=== PATIENT | male | born 1950 | race Caucasian/White ===

== ENCOUNTER 2021-03-25 08:17 | Inpatient (IN) ==
[2021-03-25 08:47] LABS: POC Blood Urea Nitrogen 19 mg/dL (6-20); POC CO2 26 mmol/L (22-30); POC Calcium, Ionized 1.21 mmEq/L (1.16-1.32); POC Chloride 100 mEq/L (96-108); POC Creatinine 0.8 mg/dL (0.6-1.2); POC Glucose, Random 108 mg/dL (70-105); POC Hematocrit 36 % (41-55); POC Potassium 3.6 mEql/L (3.3-5.1); POC Sodium 138 mEq/L (133-145)
--- NOTE | 2021-03-25 09:01 | Emergency Department Note ---
HPI General Chief complaint: Extremity Injury, Lower Stated complaint: right knee surgery Time Seen by Provider: 03/25/21 08:38 Source: patient Mode of arrival: wheelchair Limitations: no limitations History of Present Illness HPI Narrative: Narrative: 70 yo M w/ recent R knee replacement p/w drainage from his surgical site. He reports that he underwent R TKR in February, but since then has had the wound open and begin draining. He has seen Dr Rosado's SHOWROOM EXECUTIVE DIRECTOR/PA in the office who attempted packing but drainage has cont'd. Thus Dr Rosado has planned on operative intervention for this pt. Pt reports ongoing drainage but denies systemic symptoms and is overall feeling well. Related Data Home Medications Medication Instructions Recorded Confirmed atenolol 50 mg tablet 25 mg PO HS 01/04/20 02/19/21 benazepril 20 mg tablet 20 mg PO BID 01/04/20 02/19/21 bupropion HCl 150 mg 24 hr tablet, 450 mg PO QDAY tab 01/04/20 02/19/21 extended release cetirizine 10 mg tablet 10 mg PO BID tab 01/04/20 02/19/21 escitalopram oxalate 10 mg tablet 20 mg PO QDAY 01/04/20 02/19/21 pantoprazole 40 mg tablet,delayed 40 mg PO BID tab 01/04/20 02/19/21 release prazosin 2 mg capsule 2 mg PO QHS 01/04/20 02/19/21 sucralfate 1 gram tablet 1 g PO BID tab 01/04/20 02/19/21 albuterol sulfate 90 mcg/actuation 2 puff INHALATION Q4H PRN 08/24/20 02/19/21 aerosol inhaler cholecalciferol (vitamin D3) 50 150 mcg PO QDAY 08/24/20 02/19/21 mcg (2,000 unit) tablet (Vitamin D3) coenzyme Q10 200 mg capsule (Co 200 mg PO QDAY 08/24/20 02/19/21 Q-10) ibuprofen 800 mg tablet 800 mg PO Q8H PRN 08/24/20 02/19/21 multivitamin 1 tab PO QAM 08/24/20 02/19/21 plant stanol sonya 450 mg capsule 2 mg PO BID 08/24/20 02/19/21 (Cholest Off Plus) acetaminophen 325 mg tablet 325 mg PO ONCE PRN 10/26/20 02/19/21 (Tylenol) gabapentin 600 mg tablet 600 mg PO TID 12/29/20 02/19/21 ferrous sulfate 325 mg (65 mg 325 mg PO QDAY 02/19/21 02/19/21 iron) tablet Previous Rx's Medication Instructions Recorded aspirin 81 mg chewable tablet 81 mg PO BID #60 tab 02/28/21 docusate sodium 100 mg capsule 100 mg PO BID #60 cap 02/28/21 hydrocodone 10 mg-acetaminophen 1 - 2 tab PO Q4HP PRN #75 tab 02/28/21 325 mg tablet Allergies Allergy/AdvReac Type Severity Reaction Status Date / Time codeine Allergy Mild Rash Verified 03/25/21 08:19 red dye Allergy Mild Rash Verified 03/25/21 08:19 Review of Systems ROS ROS Narrative: Narrative: All systems ED: reviewed and negative except as stated. [facility] Narrative Patient History Narrative: Narrative: Medical/Surgical/Family History All Active Problems (Updated 03/25/21 @ 09:07 by Karlos Pack MD) Kidney stones (Chronic) Foreign body in ear (Chronic) Nausea (Chronic) Flank pain (Chronic) Chest pain (Chronic) History of cystoscopy (Chronic) History of surgery (Chronic) History of ankle surgery (Chronic) History of surgery (Chronic) History of tonsillectomy (Chronic) Atherosclerotic heart disease (Chronic) Emphysema, unspecified (Chronic) Essential hypertension (Chronic) Migraine, unspecified, not intractable, without status migrainosus (Chronic) History of lithotripsy (Chronic) Ureteral stone (Acute) Prostate cancer screening (Acute) Cholelithiasis and cholecystitis without obstruction (Acute) Abdominal pain of unknown etiology (Acute) Microhematuria (Acute) History of kidney stones (Acute) Bladder stone (Acute) Pyuria (Acute) UTI (urinary tract infection) (Acute) Hydronephrosis, left (Acute) Postoperative wound infection (Acute) Cellulitis of knee, right (Acute) Medical History (Updated 03/25/21 @ 09:07 by Karlos Pack MD) Atherosclerotic heart disease Chest pain Emphysema, unspecified Essential hypertension Flank pain Foreign body in ear Kidney stones Migraine, unspecified, not intractable, without status migrainosus Nausea Surgical History History of ankle surgery Leg/ankle procedure History of cystoscopy History of laparoscopic cholecystectomy 03/17/2020 History of lithotripsy History of surgery Dilatation of left ureter with intraluminal device History of surgery Revise neck spine History of tonsillectomy Family History Mother Alzheimer's dementia Family/Other Lung cancer Grandparent Grandmother Alzheimer's dementia Social History Smoking Status: Former smoker Alcohol Intake Frequency: former alcohol drinker Substance Use: does not use Exam Narrative Narrative: Narrative: General Limitations: no limitations General appearance: Present alert and in no apparent distress Head Head: Present atraumatic and normocephalic Neck Neck: Present normal inspection Chest Chest: Present normal inspection and symmetric chest wall rise Respiratory Respiratory: Present normal lung sounds bilaterally; Absent accessory muscle use or decreased breath sounds Cardiovascular Cardiovascular: Present regular rate, normal rhythm, +S1, +S2 and other (2+ B/L DP pulses); Absent systolic murmur or diastolic murmur Extremities Extremities: Present other (R knee w/ edema, erythema, warmth, TTP, 5mm open are a at center of midline incision w/ serous drainage. Intact distal sensation and strength) Neurological Neurological: Present alert and oriented X3 Psychiatric Psychiatric: Present normal affect Course Vital Signs Vital signs: Vital Signs Temperature 98.2 F 03/25/21 08:17 Pulse Rate 82 03/25/21 08:17 Respiratory Rate 16 03/25/21 08:17 Blood Pressure 141/83 03/25/21 08:17 Pulse Oximetry (%) 96 03/25/21 08:17 Temperature 98.2 F 03/25/21 08:17 Pulse Rate 82 03/25/21 08:17 Respiratory Rate 16 03/25/21 08:17 Blood Pressure 141/83 03/25/21 08:17 Pulse Oximetry (%) 96 03/25/21 08:17 MDM MDM Narrative Medical decision making narrative: Narrative: Narrative: 70 yo M w/ recent R knee replacement p/w drainage from his surgical site. DDx - sepsis, necrotizing fasciitis, postop wound infection Pt presents stable, in NAD. He is nontoxic, has stable vitals and serious conditions such as sepsis/necrotizing fasciitis are unlikely. He appears to have an uncomplicated wound infection which Dr Rosado will be addressing operatively. No need for interventions in the ED. Lab Data Result diagrams: 03/25/21 08:35 Labs: Lab Results 03/25/21 03/25/21 Range/Units 08:35 08:35 WBC 10.5 (4.5-11.0) K/mcL RBC 3.75 L (4.63-6.08) M/mcL Hgb 12.2 L (13.7-17.5) g/dL Hct 36.2 L (40.1-51.0) % POC Hct 36 L (41-55) % MCV 96.5 (80.0-100.0) fL MCH 32.5 (26.0-34.0) pg MCHC 33.7 (31.0-36.0) g/dL RDW 13.2 (11.5-14.5) % Plt Count 192 (140-440) K/mcL MPV 10.7 H (7.4-10.4) fL Neut % (Auto) 72.7 (38.0-78.0) % Lymph % (Auto) 13.0 L (15.5-49.0) % [place] % (Auto) 9.3 (1.0-12.0) % Eos % (Auto) 4.4 (0.0-7.0) % Baso % (Auto) 0.6 (0.0-2.0) % Lymph # (Auto) 1.37 L (1.50-4.80) K/mcL [place] # (Auto) 0.98 H (0.10-0.90) K/mcL Eos # (Auto) 0.46 (0.00-0.70) K/mcL Baso # (Auto) 0.06 (0.00-0.30) K/mcL Absolute Neutrophils 7.64 (1.80-8.00) K/mcL POC Sodium 138 (133-145) mEq/L POC Potassium 3.6 (3.3-5.1) mEql/L POC Chloride 100 (96-108) mEq/L POC Total CO2 26 (22-30) mmol/L POC BUN 19 (6-20) mg/dL POC Creatinine 0.8 (0.6-1.2) mg/dL POC Glucose 108 H (70-105) mg/dL POC WB Ioniz Calcium 1.21 (1.16-1.32) mmEq/L ED POC Tests ED POC Tests: ELVI - SARS Antigen Negative Discharge Plan Patient/Caregiver Discharge Instructions Pt seen by SHOWROOM EXECUTIVE DIRECTOR/PA only: No Clinical Impression: Postoperative wound infection, Cellulitis of knee, right Patient Disposition: Xfer As Inpt ([facility]) Condition: Fair Discharge Date/Time: 03/25/21 09:23
[2021-03-25 09:10] LABS: Basophils # (Auto) 0.06 K/mcL (0.00-0.30); Basophils % (Auto) 0.6 % (0.0-2.0); Eosinophils # (Auto) 0.46 K/mcL (0.00-0.70); Eosinophils % (Auto) 4.4 % (0.0-7.0); Hematocrit 36.2 % (40.1-51.0); Hemoglobin 12.2 g/dL (13.7-17.5); Lymphocytes # (Auto) 1.37 K/mcL (1.50-4.80); Mean Cell Volume 96.5 fL (80.0-100.0); Mean Corpuscular HGB Conc 33.7 g/dL (31.0-36.0); Mean Platelet Volume 10.7 fL (7.4-10.4); Monocytes # (Auto) 0.98 K/mcL (0.10-0.90); Monocytes % (Auto) 9.3 % (1.0-12.0); Neutrophils % (Auto) 72.7 % (38.0-78.0); Platelet Count 192 K/mcL (140-440); RBC 3.75 M/mcL (4.63-6.08); Red Cell Distribution Width 13.2 % (11.5-14.5); WBC 10.5 K/mcL (4.5-11.0)
[2021-03-25] MEDS ORDERED: ceFAZolin 2 GM in DEXTROSE 5% IN WATER 50 ML IV SCH (09:15)
[2021-03-25] MEDS ORDERED: MAGNESIUM SULFATE 2 GM/50 ML BAG IV ONE (09:40)
[2021-03-25] MEDS ORDERED: LIDOCAINE HCL/PF 100 MG/5 ML SYRINGE IV ONE (09:40)
[2021-03-25] MEDS ORDERED: PROPOFOL 200 MG/20 ML VIAL IV ONE (09:40)
[2021-03-25] MEDS ORDERED: fentaNYL 250 MCG/5 ML VIAL IV ONE (09:40)
[2021-03-25] MEDS ORDERED: DEXAMETHASONE 10 MG/ML VIAL ONE (09:40)
[2021-03-25] MEDS ORDERED: ONDANSETRON 4 MG/2 ML VIAL ONE (09:40)
[2021-03-25] MEDS ORDERED: KETAMINE 50 MG/ML Syringe (ANEST) IV ONE (09:40)
[2021-03-25] MEDS ORDERED: VANCOMYCIN 500 MG VIAL IP SCH (10:15)
[2021-03-25] MEDS ORDERED: TOBRAMYCIN SULFATE 1.2 GM VIAL TOPICAL ONE (10:19)
[2021-03-25] MEDS ORDERED: MEPERIDINE 25 MG/ML VIAL IV PRN (10:23)
[2021-03-25] MEDS ORDERED: PROMETHAZINE 25 MG/ML VIAL IV PRN (10:23)
[2021-03-25] MEDS ORDERED: METHOCARBAMOL 1,000 MG/10 ML VIAL IV PRN (10:23)
[2021-03-25] MEDS ORDERED: IPRATROPIUM/ALBUTEROL 3 ML AMPUL.NEB NEB PRN (10:23)
[2021-03-25] MEDS ORDERED: LACTATED RINGERS 250 ML IV PRN (10:23)
[2021-03-25] MEDS ORDERED: diphenhydrAMINE 50 MG/ML VIAL IV PRN (10:23)
[2021-03-25] MEDS ORDERED: ACETAMINOPHEN 1,000 MG/100 ML BAG IV ONE (10:23)
[2021-03-25] MEDS ORDERED: NALOXONE HCL 0.4 MG/ML VIAL IV PRN (10:23)
[2021-03-25] MEDS ORDERED: ONDANSETRON 4 MG/2 ML VIAL IV PRN (10:23)
[2021-03-25] MEDS ORDERED: LACTATED RINGERS 1,000 ML IV SCH (10:30)
[2021-03-25] MEDS ORDERED: VANCOMYCIN 1 GM VIAL TOPICAL ONE (10:30)
[2021-03-25] MEDS ORDERED: BISACODYL 10 MG SUPP.RECT PR PRN (11:08)
[2021-03-25] MEDS ORDERED: BENZOCAINE/MENTHOL 1 LOZENGE PO PRN (11:08)
[2021-03-25] MEDS ORDERED: POLYETHYLENE GLYCOL 3350 17 GM PACKET PO PRN (11:08)
[2021-03-25] MEDS ORDERED: MAGNESIUM HYDROXIDE 30 ML ORAL.SUSP PO PRN (11:08)
[2021-03-25] MEDS ORDERED: FLEETS ADULT ENEMA PR PRN (11:08)
[2021-03-25] MEDS ORDERED: TRANEXAMIC ACID 1,000 MG/10 ML VIAL IV SCH (11:08)
--- NOTE | 2021-03-25 11:08 | Brief Operative Note ---
Brief Operative Note Date of procedure: 03/25/21 Pre-op diagnosis: Draining wound s/p total knee arthroplasty, possible infected total knee Post-op diagnosis: other (Infected right total knee arthroplasty) Procedure: Irrigation and debridement of infected total knee arthroplasty with polyethylene liner exchange Grafts/Implants: Yes (Size 6 12mm poly insert) Anesthesia: GLMA Findings: infection down to joint Complications: none Surgeon: Emmett Rosado Sexual Assault Nurse: Thierry Musa Estimated blood loss (cc): 50 Specimens Removed/Pathology: other (C&S x 2) Condition: stable Disposition: PACU
[2021-03-25] MEDS ORDERED: VANCOMYCIN PER PHARMACY IV SCH (11:16)
[2021-03-25] MEDS: fentaNYL 100 MCG/2 ML VIAL IV PRN ×3 (12:01→12:10)
--- NOTE | 2021-03-25 12:07 | Internal Medicine Consult Note ---
HPI Data of Consult Consult date: 03/25/21 Primary Care Provider: Magy Segundo Consult Narrative Patient Information: Note initiated : 03/25/21 at 11:52 am Service Date, if different from initiated Date: [] Patient: Jb Hanson 70 y/o M admitted on for right knee surgery. Chief Complaint: [] cc:: CC: Emmett Rosado Patient underwent total knee arthroplasty about 3 weeks ago on the right knee. He has since developed prosthetic joint infection. He underwent I&D with polyethylene liner exchange, for stage. Patient denies fever chills. Has a history of hypertension COPD not on home oxygen rarely uses rescue inhalers and history of depression anxiety GERD. Review of Systems: Pertinent positives above. Denies headache/fever/chills/nausea/vomiting/chest or abdominal pain/cough/dyspnea/diarrhea. Main 10 point review of system reviewed and negative PFSH PFSH All Active Problems (Updated 03/25/21 @ 09:07 by Karlos Pack MD) Kidney stones (Chronic) Foreign body in ear (Chronic) Nausea (Chronic) Flank pain (Chronic) Chest pain (Chronic) History of cystoscopy (Chronic) History of surgery (Chronic) History of ankle surgery (Chronic) History of surgery (Chronic) History of tonsillectomy (Chronic) Atherosclerotic heart disease (Chronic) Emphysema, unspecified (Chronic) Essential hypertension (Chronic) Migraine, unspecified, not intractable, without status migrainosus (Chronic) History of lithotripsy (Chronic) Ureteral stone (Acute) Prostate cancer screening (Acute) Cholelithiasis and cholecystitis without obstruction (Acute) Abdominal pain of unknown etiology (Acute) Microhematuria (Acute) History of kidney stones (Acute) Bladder stone (Acute) Pyuria (Acute) UTI (urinary tract infection) (Acute) Hydronephrosis, left (Acute) Postoperative wound infection (Acute) Cellulitis of knee, right (Acute) Medical History (Updated 03/25/21 @ 09:07 by Karlos Pack MD) Atherosclerotic heart disease Chest pain Emphysema, unspecified Essential hypertension Flank pain Foreign body in ear Kidney stones Migraine, unspecified, not intractable, without status migrainosus Nausea Surgical History History of ankle surgery Leg/ankle procedure History of cystoscopy History of laparoscopic cholecystectomy 03/17/2020 History of lithotripsy History of surgery Dilatation of left ureter with intraluminal device History of surgery Revise neck spine History of tonsillectomy Family History Mother Alzheimer's dementia Family/Other Lung cancer Grandparent Grandmother Alzheimer's dementia Social History household members: spouse marital status: occupational status: retired alcohol intake frequency: former alcohol drinker substance use type: does not use MEDS/ALLERGIES Home Medications and Allergies Home Medications Medication Instructions Recorded Confirmed Type atenolol 50 mg tablet 25 mg PO HS 01/04/20 02/19/21 History benazepril 20 mg tablet 20 mg PO BID 01/04/20 02/19/21 History bupropion HCl 150 mg 24 hr tablet, 450 mg PO QDAY tab 01/04/20 02/19/21 History extended release cetirizine 10 mg tablet 10 mg PO BID tab 01/04/20 02/19/21 History escitalopram oxalate 10 mg tablet 20 mg PO QDAY 01/04/20 02/19/21 History pantoprazole 40 mg tablet,delayed 40 mg PO BID tab 01/04/20 02/19/21 History release prazosin 2 mg capsule 2 mg PO QHS 01/04/20 02/19/21 History sucralfate 1 gram tablet 1 g PO BID tab 01/04/20 02/19/21 History albuterol sulfate 90 mcg/actuation 2 puff INHALATION Q4H PRN 08/24/20 02/19/21 History aerosol inhaler cholecalciferol (vitamin D3) 50 150 mcg PO QDAY 08/24/20 02/19/21 History mcg (2,000 unit) tablet (Vitamin D3) coenzyme Q10 200 mg capsule (Co 200 mg PO QDAY 08/24/20 02/19/21 History Q-10) ibuprofen 800 mg tablet 800 mg PO Q8H PRN 08/24/20 02/19/21 History multivitamin 1 tab PO QAM 08/24/20 02/19/21 History plant stanol sonya 450 mg capsule 2 mg PO BID 08/24/20 02/19/21 History (Cholest Off Plus) acetaminophen 325 mg tablet 325 mg PO ONCE PRN 10/26/20 02/19/21 History (Tylenol) gabapentin 600 mg tablet 600 mg PO TID 12/29/20 02/19/21 History ferrous sulfate 325 mg (65 mg 325 mg PO QDAY 02/19/21 02/19/21 History iron) tablet aspirin 81 mg chewable tablet 81 mg PO BID #60 tab 02/28/21 Rx docusate sodium 100 mg capsule 100 mg PO BID #60 cap 02/28/21 Rx hydrocodone 10 mg-acetaminophen 1 - 2 tab PO Q4HP PRN #75 tab 02/28/21 Rx 325 mg tablet Allergies Allergy/AdvReac Type Severity Reaction Status Date / Time codeine Allergy Mild Rash Verified 03/25/21 08:19 red dye Allergy Mild Rash Verified 03/25/21 08:19 EXAM Constitutional Vitals: Temp Pulse Resp BP Pulse Ox 100.4 F H 82 16 141/83 96 03/25/21 11:31 03/25/21 08:17 03/25/21 08:17 03/25/21 08:17 03/25/21 08:17 Exam: General: Alert, Awake, No acute Distress, obese Eyes/N/T: EOMI, PERRL, Head/Neck: neck supple, normocephalic atraumatic CV: RRR, No murmurs, normal s1/s2 Pulm: Clear b/l, no wheezing/rhonchi/rales Abd: soft, nontender, +BS x4 Ext: no clubbing/cyanosis/edema. Right knee and dressings Neuro: Alert, no focal deficits, moves all extremities, CN 2-12 grossly intact, symmetrical strength b/l upper/lower, sensations intact b/l upper/lower Skin: warm/dry DATA Data Completed and Pending Labs: Labs from last 24 hours 03/25/21 03/25/21 03/25/21 11:39 11:39 08:35 WBC Pending 10.5 RBC Pending 3.75 L Hgb Pending 12.2 L Hct Pending 36.2 L POC Hct MCV Pending 96.5 MCH Pending 32.5 MCHC Pending 33.7 RDW Pending 13.2 Plt Count Pending 192 MPV Pending 10.7 H Neut % (Auto) Pending 72.7 Lymph % (Auto) 13.0 L [place] % (Auto) 9.3 Eos % (Auto) 4.4 Baso % (Auto) 0.6 Lymph # (Auto) 1.37 L [place] # (Auto) 0.98 H Eos # (Auto) 0.46 Baso # (Auto) 0.06 Absolute Neutrophils 7.64 ESR Pending POC Sodium POC Potassium POC Chloride POC Total CO2 POC BUN POC Creatinine POC Glucose POC WB Ioniz Calcium C-Reactive Protein Pending 03/25/21 08:35 WBC RBC Hgb Hct POC Hct 36 L MCV MCH MCHC RDW Plt Count MPV Neut % (Auto) Lymph % (Auto) [place] % (Auto) Eos % (Auto) Baso % (Auto) Lymph # (Auto) [place] # (Auto) Eos # (Auto) Baso # (Auto) Absolute Neutrophils ESR POC Sodium 138 POC Potassium 3.6 POC Chloride 100 POC Total CO2 26 POC BUN 19 POC Creatinine 0.8 POC Glucose 108 H POC WB Ioniz Calcium 1.21 C-Reactive Protein A/P Narrative A/P Narrative: A: *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 IV abx course 4-6wks. weekly labs while on IV abx outpt -start rifampin if cx grows staph and if has residual hardware -pt/ot -IS -Continue home BB/ACEI, cont psych meds, ppi -ppx: per ortho ASA bid Time Spent With Patient Time: Total time spent is greater than 50% in coordination of care (as documented) at patient's floor/unit and/or counseling patient:
[2021-03-25 12:18] LABS: Basophils # (Auto) 0.03 K/mcL (0.00-0.30); Basophils % (Auto) 0.3 % (0.0-2.0); Eosinophils # (Auto) 0.29 K/mcL (0.00-0.70); Eosinophils % (Auto) 3.3 % (0.0-7.0); Hemoglobin 10.3 g/dL (13.7-17.5); Lymphocytes # (Auto) 1.25 K/mcL (1.50-4.80); Lymphocytes % (Auto) 14.3 % (15.5-49.0); Mean Cell Volume 98.7 fL (80.0-100.0); Mean Corpuscular HGB Conc 34.3 g/dL (31.0-36.0); Mean Platelet Volume 10.6 fL (7.4-10.4); Monocytes # (Auto) 0.39 K/mcL (0.10-0.90); Monocytes % (Auto) 4.5 % (1.0-12.0); Neutrophils % (Auto) 77.6 % (38.0-78.0); Platelet Count 167 K/mcL (140-440); RBC 3.04 M/mcL (4.63-6.08); Red Cell Distribution Width 13.5 % (11.5-14.5); WBC 8.8 K/mcL (4.5-11.0)
[2021-03-25] MEDS: 0.9 % SODIUM CHLORIDE 1,000 ML IV SCH ×2 (12:50→22:24)
[2021-03-25] MEDS: VANCOMYCIN 1,500 MG in 0.9 % SODIUM CHLORIDE 500 ML IV SCH ×2 (13:17→21:01)
[2021-03-25 13:59] LABS: Erythrocyte Sedimentation Rate 36 mm/hr (0-15)
[2021-03-25] MEDS: cefTRIAXone 2 GM in DEXTROSE 5% IN WATER 50 ML IV SCH (15:58)
[2021-03-25] MEDS: HYDROmorphone 1 MG/ML SYRINGE IV PRN (16:01)
[2021-03-25] MEDS: 0.9 % SODIUM CHLORIDE 10 ML SYRINGE IV SCH ×2 (16:07→22:25)
[2021-03-25] MEDS: DOCUSATE SODIUM 100 MG CAPSULE PO SCH (21:02)
[2021-03-25] MEDS: ASPIRIN 81 MG TAB.CHEW PO SCH (21:02)
[2021-03-25] MEDS: SENNOSIDES 1 TABLET PO SCH (21:02)
[2021-03-25] MEDS: HYDROcodone/APAP 10/325MG TABLET PO PRN (21:02)
[2021-03-25] MEDS: RIFAMPIN 300 MG CAPSULE PO SCH (21:03)
[2021-03-25] MEDS: diphenhydrAMINE 25 MG CAPSULE PO PRN (22:24)
[2021-03-25] MEDS: MELATONIN 3 MG TABLET PO PRN (22:25)
[2021-03-26] MEDS: 0.9 % SODIUM CHLORIDE 10 ML SYRINGE IV SCH ×3 (04:51→20:49)
--- NOTE | 2021-03-26 07:25 | Internal Med Progress Note ---
SUBJECTIVE Subjective Patient information: Note initiated : 03/26/21 at 7:23 am Service Date, if different from initiated Date: [] Patient: Jb Hanson 70 y/o M admitted on 03/25/21 for right knee surgery. Chief Complaint: [] Interval history: Patient underwent total knee arthroplasty about 3 weeks ago on the right knee. He has since developed prosthetic joint infection. He underwent I&D with polyethylene liner exchange, for stage. Patient denies fever chills. Has a history of hypertension COPD not on home oxygen rarely uses rescue i nhalers and history of depression anxiety GERD. 03/26 Patient states poor sleep but that is normal for him. States he tried every sleep aid but nothing really helps. No other overnight event or new complaints. Review of Systems: denies headache/fever/chills/nausea/vomiting/chest or abdominal pain /cough/dyspnea/diarrhea. Otherwise see above. Constitutional Vitals: Vital Signs Temp Pulse Resp BP Pulse Ox 98.4 F 72 20 157/85 94 03/26/21 07:04 03/26/21 07:04 03/26/21 07:04 03/26/21 07:04 03/26/21 07:04 Period Temp Pulse Resp BP Sys/Rankin Pulse Ox Last 24 Hr 97.7 F-100.4 F 72-82 16-20 113-157/69-85 88-96 Intake and Output 03/25/21 03/26/21 03/26/21 21:59 05:59 13:59 Intake Total 900 2257 Output Total 100 800 Balance 800 1457 Weight 121.223 kg Intake & Output: Intake & Output 03/25/21 03/26/21 03/26/21 21:59 05:59 13:59 Intake Total 900 2257 Output Total 100 800 Balance 800 1457 Weight 121.223 kg Intake: IV 550 1457 Sodium Chloride 0.9% 1,000 ml @ 957 100 mls/hr IV .Q10H [facility] Rx#: [id number] Vancomycin 1,500 mg In Sodium 500 500 Chloride 0.9% 500 ml @ 333.3 mls/hr IV Q12H [facility] Rx#: [id number] Rocephin 2 gm In Dextrose 5% in 50 Water 50 ml @ 100 mls/hr IV DAILY [facility] Rx#:[id number] Oral 350 800 Output: Drainage 50 Right Knee Woundvac 50 Void Amount 50 800 Other: Meal Dinner Percent of Meal Consumed 100% Feeding Ability Independent Independent Urine Appearance Clear Clear Urine Color Light Magalie Dark Yellow Urine Odor Normal # Voids 1 2 Exam: General: Alert, Awake, No acute Distress, obese Eyes/N/T: EOMI, Head/Neck: neck supple, CV: RRR, No murmurs, Pulm: Clear b/l, no wheezing/rhonchi/rales Abd: soft, nontender, +BS x4 Ext: no clubbing/cyanosis/edema. Right knee and dressings Neuro: Alert, no focal deficits, moves all extremities,CN 2-12 grossly intact, symmetrical strength b/l upper/lower, sensations intact b/l upper/lower Skin: warm/dry OBJ DATA Labs CBC & Chem 7: 03/25/21 11:39 Labs: Abnormal Lab Results 03/25/21 03/25/21 03/25/21 11:39 11:39 08:35 RBC 3.04 L 3.75 L Hgb 10.3 L 12.2 L Hct 30.0 L 36.2 L POC Hct MPV 10.6 H 10.7 H Lymph % (Auto) 14.3 L 13.0 L Lymph # (Auto) 1.25 L 1.37 L [place] # (Auto) 0.98 H ESR 36 H POC Glucose C-Reactive Protein 24.10 H 03/25/21 08:35 RBC Hgb Hct POC Hct 36 L MPV Lymph % (Auto) Lymph # (Auto) [place] # (Auto) ESR POC Glucose 108 H C-Reactive Protein Meds: Medications Hydrocodone Bitart/Acetaminophen (Hydrocodone/Apap 10/325mg Tablet) 1 - 2 tab PO Q4HP PRN; Protocol PRN Reason: Per Pain Protocol Last Admin: 03/25/21 21:02 Dose: 1 tab Documented by: Aspirin (Aspirin 81 Mg Tab.Chew) 81 mg PO BID [facility] Last Admin: 03/25/21 21:02 Dose: 81 mg Documented by: Bisacodyl (Bisacodyl 10 Mg Supp.Rect) 10 mg [place] Q2-3DAYS PRN PRN Reason: Constipation Diphenhydramine HCl (Diphenhydramine 25 Mg Capsule) 25 mg PO HSP PRN PRN Reason: Insomnia Last Admin: 03/25/21 22:24 Dose: 25 mg Documented by: Docusate Sodium (Docusate Sodium 100 Mg Capsule) 100 mg PO BID [facility] Last Admin: 03/25/21 21:02 Dose: 100 mg Documented by: Hydromorphone HCl (Hydromorphone 1 Mg/Ml Syringe) 0.5 - 2 mg IV Q2HP PRN; Protocol PRN Reason: Per Pain Protocol Last Admin: 03/25/21 16:01 Dose: 1 mg Documented by: Sodium Chloride (Sodium Chloride 0.9%) 1,000 mls @ 100 mls/hr IV .Q10H [facility] Last Admin: 03/25/21 22:24 Dose: 100 mls/hr Documented by: Vancomycin HCl 1,500 mg/ (Sodium Chloride) 500 mls @ 333.3 mls/hr IV Q12H [facility] Last Infusion: 03/25/21 23:00 Dose: Infused Documented by: Ceftriaxone Sodium 2 gm/ (Dextrose) 50 mls @ 100 mls/hr IV DAILY [facility]; Protocol Last Infusion: 03/25/21 16:30 Dose: Infused Documented by: Magnesium Hydroxide (Magnesium Hydroxide 30 Ml Oral.Susp) 30 ml PO BIDP PRN PRN Reason: Constipation Melatonin (Melatonin 3 Mg Tablet) 3 mg PO HSP PRN PRN Reason: Sleep Last Admin: 03/25/21 22:25 Dose: 3 mg Documented by: Ondansetron HCl (Ondansetron 4 Mg/2 Ml Vial) 4 mg IV Q4HP PRN; Protocol PRN Reason: Nausea And Vomiting Polyethylene Glycol (Polyethylene Glycol 3350 17 Gm Packet) 17 gm PO DAILYP PRN PRN Reason: Constipation Rifampin (Rifampin 300 Mg Capsule) 300 mg PO BID@0700,2000 [facility]; Protocol Last Admin: 03/25/21 21:03 Dose: 300 mg Documented by: Senna (Sennosides 1 Tablet) 2 tab PO HS [facility] Last Admin: 03/25/21 21:02 Dose: 2 tab Documented by: Sodium Biphosphate/Sodium Phosphate (Fleets Adult Enema) 1 dose [place] Q3-4DAYS PRN PRN Reason: Constipation Sodium Chloride (0.9 % Sodium Chloride 10 Ml Syringe) 10 ml IV Q8 [facility] Last Admin: 03/26/21 04:51 Dose: Not Given Documented by: Throat Lozenges (Benzocaine/Menthol 1 Lozenge) 1 lozenge PO PRN PRN PRN Reason: Sore Throat Vancomycin HCl (Vancomycin Per Pharmacy) 1 order IV UD [facility]; Protocol A/P Narrative A/P Narrative: A: *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 IV abx course 4-6wks. weekly labs while on IV abx outpt -start rifampin if cx grows staph and if has residual hardware -pt/ot -IS -Continue home BB/ACEI, cont psych meds, ppi -ppx: per ortho ASA bid Time Spent With Patient Time: Total time spent is greater than 50% in coordination of care (as documented) at patient's floor/unit and/or counseling patient:
--- NOTE | 2021-03-26 07:39 | Orthopedic Progress Note ---
SUBJECTIVE Subjective Patient information: Note initiated : 03/26/21 at 7:35 am Service Date, if different from initiated Date: [] Patient: Jb Hanson 70 y/o M admitted on 03/25/21 for right knee surgery. Chief Complaint: [] Principal diagnosis: infected total knee arthroplasty Interval history: pain 6-7, no other issues, drain came out Constitutional Vitals: Vital Signs Temp Pulse Resp BP Pulse Ox 98.4 F 72 20 157/85 94 03/26/21 07:04 03/26/21 07:04 03/26/21 07:04 03/26/21 07:04 03/26/21 07:04 Period Temp Pulse Resp BP Sys/Rankin Pulse Ox Last 24 Hr 97.7 F-100.4 F 72-82 16-20 113-157/69-85 88-96 Intake and Output 03/25/21 03/26/21 03/26/21 21:59 05:59 13:59 Intake Total 900 2257 Output Total 100 800 Balance 800 1457 Weight 267 lb 4 oz Intake & Output: Intake & Output 03/25/21 03/26/21 03/26/21 21:59 05:59 13:59 Intake Total 900 2257 Output Total 100 800 Balance 800 1457 Weight 267 lb 4 oz Intake: IV 550 1457 Sodium Chloride 0.9% 1,000 ml @ 957 100 mls/hr IV .Q10H [facility] Rx#: [id number] Vancomycin 1,500 mg In Sodium 500 500 Chloride 0.9% 500 ml @ 333.3 mls/hr IV Q12H [facility] Rx#: [id number] Rocephin 2 gm In Dextrose 5% in 50 Water 50 ml @ 100 mls/hr IV DAILY [facility] Rx#:[id number] Oral 350 800 Output: Drainage 50 Right Knee Woundvac 50 Void Amount 50 800 Other: Meal Dinner Percent of Meal Consumed 100% Feeding Ability Independent Independent Urine Appearance Clear Clear Urine Color Light Magalie Dark Yellow Urine Odor Normal # Voids 1 2 General appearance: cooperative and no acute distress Additional findings Additional findings: dressing w dried shadow drainage OBJ DATA Labs CBC & Chem 7: 03/25/21 11:39 Labs: Abnormal Lab Results 03/25/21 03/25/21 03/25/21 11:39 11:39 08:35 RBC 3.04 L 3.75 L Hgb 10.3 L 12.2 L Hct 30.0 L 36.2 L POC Hct MPV 10.6 H 10.7 H Lymph % (Auto) 14.3 L 13.0 L Lymph # (Auto) 1.25 L 1.37 L [place] # (Auto) 0.98 H ESR 36 H POC Glucose C-Reactive Protein 24.10 H 03/25/21 08:35 RBC Hgb Hct POC Hct 36 L MPV Lymph % (Auto) Lymph # (Auto) [place] # (Auto) ESR POC Glucose 108 H C-Reactive Protein Meds: Medications Hydrocodone Bitart/Acetaminophen (Hydrocodone/Apap 10/325mg Tablet) 1 - 2 tab PO Q4HP PRN; Protocol PRN Reason: Per Pain Protocol Last Admin: 03/25/21 21:02 Dose: 1 tab Documented by: Aspirin (Aspirin 81 Mg Tab.Chew) 81 mg PO BID [facility] Last Admin: 03/25/21 21:02 Dose: 81 mg Documented by: Bisacodyl (Bisacodyl 10 Mg Supp.Rect) 10 mg [place] Q2-3DAYS PRN PRN Reason: Constipation Diphenhydramine HCl (Diphenhydramine 25 Mg Capsule) 25 mg PO HSP PRN PRN Reason: Insomnia Last Admin: 03/25/21 22:24 Dose: 25 mg Documented by: Docusate Sodium (Docusate Sodium 100 Mg Capsule) 100 mg PO BID [facility] Last Admin: 03/25/21 21:02 Dose: 100 mg Documented by: Hydromorphone HCl (Hydromorphone 1 Mg/Ml Syringe) 0.5 - 2 mg IV Q2HP PRN; Protocol PRN Reason: Per Pain Protocol Last Admin: 03/25/21 16:01 Dose: 1 mg Documented by: Sodium Chloride (Sodium Chloride 0.9%) 1,000 mls @ 100 mls/hr IV .Q10H [facility] Last Admin: 03/25/21 22:24 Dose: 100 mls/hr Documented by: Vancomycin HCl 1,500 mg/ (Sodium Chloride) 500 mls @ 333.3 mls/hr IV Q12H [facility] Last Infusion: 03/25/21 23:00 Dose: Infused Documented by: Ceftriaxone Sodium 2 gm/ (Dextrose) 50 mls @ 100 mls/hr IV DAILY [facility]; Protocol Last Infusion: 03/25/21 16:30 Dose: Infused Documented by: Magnesium Hydroxide (Magnesium Hydroxide 30 Ml Oral.Susp) 30 ml PO BIDP PRN PRN Reason: Constipation Melatonin (Melatonin 3 Mg Tablet) 3 mg PO HSP PRN PRN Reason: Sleep Last Admin: 03/25/21 22:25 Dose: 3 mg Documented by: Ondansetron HCl (Ondansetron 4 Mg/2 Ml Vial) 4 mg IV Q4HP PRN; Protocol PRN Reason: Nausea And Vomiting Polyethylene Glycol (Polyethylene Glycol 3350 17 Gm Packet) 17 gm PO DAILYP PRN PRN Reason: Constipation Rifampin (Rifampin 300 Mg Capsule) 300 mg PO BID@0700,2000 [facility]; Protocol Last Admin: 03/25/21 21:03 Dose: 300 mg Documented by: Senna (Sennosides 1 Tablet) 2 tab PO HS [facility] Last Admin: 03/25/21 21:02 Dose: 2 tab Documented by: Sodium Biphosphate/Sodium Phosphate (Fleets Adult Enema) 1 dose [place] Q3-4DAYS PRN PRN Reason: Constipation Sodium Chloride (0.9 % Sodium Chloride 10 Ml Syringe) 10 ml IV Q8 [facility] Last Admin: 03/26/21 04:51 Dose: Not Given Documented by: Throat Lozenges (Benzocaine/Menthol 1 Lozenge) 1 lozenge PO PRN PRN PRN Reason: Sore Throat Vancomycin HCl (Vancomycin Per Pharmacy) 1 order IV [facility] [place]; Protocol Impressions Impression: POD #1 s/p single stage liner exchange I&D of acutely infected total knee arthroplasty-stable, cx's pending -continue IV abx until c&s back -PICC line placement -d/c planning to try to figure out d/c plan w abx -hospitalist following A/P Time Spent With Patient Time: Total time spent is greater than 50% in coordination of care (as documented) at patient's floor/unit and/or counseling patient:
--- NOTE | 2021-03-26 08:05 | Operative Note ---
DATE OF OPERATION: 03/25/2021 PREOPERATIVE DIAGNOSIS: Right knee draining wound, status post total knee arthroplasty, possible infected total knee. POSTOPERATIVE DIAGNOSIS: Infected total knee arthroplasty. PROCEDURE PERFORMED: Irrigation and debridement of infected total knee arthroplasty with polyethylene liner exchange replacing a size 6, 12 mm thick cruciate retaining insert. SURGEON: Emmett Rosado M.D. SLOT ATTENDANT: Babak Hong PA-C. This providers expertise and technical skill were required throughout the case. The PA assisted with preoperative coordination, intraoperative retraction, wound closure, and dressing and splint application, as well as postoperative documentation and care coordination. DRAINS: Medium Hemovac. SPECIMENS: Culture and sensitivity x2 as well as removed polyethylene insert, which was discarded. ESTIMATED BLOOD LOSS: Less than 50 mL. COMPLICATIONS: None. POSTOPERATIVE CONDITION: Stable. INDICATIONS FOR SURGERY: This is a 70-year-old male who had severe osteoarthritis, who three weeks ago underwent a right total knee arthroplasty by me. He had noted several days ago that the wound opened up and started draining and there became progressively more copious drainage. He denied fever or chills. FINDINGS AT SURGERY: There was a draining wound that communicated down to the joint, although not grossly purulent. PROCEDURE IN DETAIL: The patient had been seen in the preoperative holding and informed consent had been obtained after discussion of risks and benefits of surgery. Risks including, but not limited to bleeding, continued infection, injury to nerves, blood vessels, other surrounding structures, anesthetic risks; incomplete or no resolution of the infection, possibly requiring further surgery such as entire implant removal and 2-stage treatment. He understood these risks and wished to proceed. Correct operative site was marked and patient was taken to the operating room. General anesthesia induced. Right lower extremity was carefully prepped and draped in normal sterile fashion. A timeout was performed verifying patient name, operative site, and plan. The leg was elevated for about a minute and then tourniquet was inflated to 300 mmHg. Ioban was used to cover the skin surface and then his prior incision scar was used opened with the scalpel, midline. On entering the deeper layer, I developed this with my finger and I was able to palpate a hole through the medial parapatellar incision down to the joint. At this point, I took two culture swabs of the joint fluid and then carefully removed suture material and opened up his previous arthrotomy. I then used an osteotome to remove the polyethylene insert and then spent quite a bit of time doing an aggressive synovectomy and debridement of the suprapatellar pouch gutters and posterior capsule. In the meantime, we had worked on mixing absorbable antibiotic beads with vancomycin and tobramycin mixed in. Once I had completely debrided, we then filled the joint with a dilute mixture of 50% Betadine with a 50% saline. After waiting 3 minutes, I copiously pulse lavaged with saline. I then repeated this with a second wash of the joint with dilute Betadine letting it soak for another 3 minutes. I then pulse lavaged copiously with saline. At this point, I irrigated with IrriSept and trialed a 12 polyethylene insert, which was 1 mm thicker than we removed. This was going to be snug, so we went ahead and removed this and opened a 12 insert. We irrigated some more IrriSept on the tray and then impacted the insert into position. The knee was then taken into extension and we irrigated the whole joint with IrriSept, after a minute, pulse lavaged with saline. Throughout the procedure, I irrigated a total of 9000 mL of saline. We then placed a drain out the superolateral pouch and then antibiotic beads were placed in the suprapatellar pouch and gutters and then the knee was placed over a bump at about 30 degrees of flexion. I then used a looped PDS suture to do three [id number] sutures, one at the superior medial portion of the patella, one at the inferior medial and one directly medial. I then used a Stratafix suture to do a running closure, 1 running from the distal margin up to mid patella and the second one running from the proximal quad incision down to the mid patella. We used the rest of the IrriSept irrigation of the subcutaneous and then after a minute, pulse lavaged with saline. A 2-0 Monocryl was used for subcutaneous, cammy for skin. Xeroform and a sterile dressing were applied. A drain was hooked with a sterile suction. Tourniquet was released. The patient was awakened, extubated, and transferred to recovery in stable condition. BJB:sohail Job ID: [id number] Doc ID: [id number] Emmett Rosado MD
[2021-03-26] MEDS: cefTRIAXone 2 GM in DEXTROSE 5% IN WATER 50 ML IV SCH (08:35)
[2021-03-26] MEDS: 0.9 % SODIUM CHLORIDE 1,000 ML IV SCH ×3 (08:35→19:17)
[2021-03-26] MEDS: ONDANSETRON 4 MG/2 ML VIAL IV PRN ×3 (08:36→19:35)
[2021-03-26] MEDS: ASPIRIN 81 MG TAB.CHEW PO SCH ×2 (08:52→20:47)
[2021-03-26] MEDS: HYDROcodone/APAP 10/325MG TABLET PO PRN ×3 (08:52→19:30)
[2021-03-26] MEDS: DOCUSATE SODIUM 100 MG CAPSULE PO SCH ×2 (08:53→20:48)
[2021-03-26] MEDS: RIFAMPIN 300 MG CAPSULE PO SCH ×2 (08:59→20:46)
[2021-03-26] MEDS ORDERED: 0.9 % SODIUM CHLORIDE 10 ML SYRINGE IV PRN (09:16)
--- NOTE | 2021-03-26 11:30 | XRay Report ---
HISTORY: PICC line placement FINDINGS: A PICC line is been inserted through the left arm. The tip of the catheter is in the right superior mediastinum at the level of the superior vena cava. There is no widening of the mediastinum. No pneumothorax or pleural effusion are present. The lungs are clear. The heart size is normal. IMPRESSION: Well-positioned PICC line and no complication Nursing was called with the report Interpreted and Authenticated by: Tee Calderon 03/26/21
[2021-03-26] MEDS: VANCOMYCIN 1,500 MG in 0.9 % SODIUM CHLORIDE 500 ML IV SCH ×2 (12:02→20:49)
[2021-03-26] MEDS: SENNOSIDES 1 TABLET PO SCH (20:49)
[2021-03-27] MEDS: diphenhydrAMINE 25 MG CAPSULE PO PRN (00:13)
[2021-03-27] MEDS: HYDROmorphone 1 MG/ML SYRINGE IV PRN ×2 (00:13→08:15)
[2021-03-27] MEDS: MELATONIN 3 MG TABLET PO PRN (00:13)
[2021-03-27] MEDS: HYDROcodone/APAP 10/325MG TABLET PO PRN ×2 (05:48→21:00)
[2021-03-27] MEDS: ONDANSETRON 4 MG/2 ML VIAL IV PRN (05:57)
[2021-03-27] MEDS: 0.9 % SODIUM CHLORIDE 1,000 ML IV SCH ×2 (06:31→13:59)
--- NOTE | 2021-03-27 07:10 | Internal Med Progress Note ---
SUBJECTIVE Subjective Patient information: Note initiated : 03/27/21 at 7:09 am Service Date, if different from initiated Date: [] Patient: Jb Hanson 70 y/o M admitted on 03/25/21 for right knee surgery. Chief Complaint: [] Principal diagnosis: infected total knee arthroplasty Interval history: Patient underwent total knee arthroplasty about 3 weeks ago on the right knee. He has since developed prosthetic joint infection. He underwent I&D with polyethylene liner exchange, for stage. Patient denies fever chills. Has a history of hypertension COPD not on home oxygen rarely uses rescue inhalers and history of depression anxiety GERD. 03/26 Patient states poor sleep but that is normal for him. States he tried every sleep aid but nothing really helps. No other overnight event or new complaints. 03/27 Complaints of migraine. Poor sleep but otherwise no new complaints. Wound culture with staph aureus pending final identity. Review of Systems: denies headache/fever/chills/nausea/vomiting/chest or abdominal pain/cough/dyspnea/diarrhea. Otherwise see above. Constitutional Vitals: Vital Signs Temp Pulse Resp BP Pulse Ox 97.6 F 69 18 149/92 91 03/27/21 03:26 03/27/21 03:26 03/27/21 03:26 03/27/21 03:26 03/27/21 03:26 Period Temp Pulse Resp BP Sys/Rankin Pulse Ox Last 24 Hr 97.5 F-98.8 F 65-69 16-20 149-185/85-92 90-96 Intake and Output 03/26/21 03/27/21 03/27/21 21:59 05:59 13:59 Intake Total 940 Balance 940 Weight 122.697 kg Intake & Output: Intake & Output 03/26/21 03/27/21 03/27/21 21:59 05:59 13:59 Intake Total 940 Balance 940 Weight 122.697 kg Intake: IV 500 Vancomycin 1,500 mg In Sodium 500 Chloride 0.9% 500 ml @ 333.3 mls/hr IV Q12H [facility] Rx#: [id number] Oral 440 Other: # Voids 1 1 Exam: General: Alert, Awake, No acute Distress, obese Eyes/N/T: EOMI, Head/Neck: neck supple, CV: RRR, No murmurs, Pulm: Clear b/l, no wheezing/rhonchi/rales Abd: soft, nontender, +BS x4 Ext: no clubbing/cyanosis/edema. Right knee and dressings Neuro: Alert, no focal deficits, moves all extremities Skin: warm/dry OBJ DATA Labs CBC & Chem 7: 03/25/21 11:39 Labs: Abnormal Lab Results 03/25/21 03/25/21 03/25/21 11:39 11:39 08:35 RBC 3.04 L 3.75 L Hgb 10.3 L 12.2 L Hct 30.0 L 36.2 L POC Hct MPV 10.6 H 10.7 H Lymph % (Auto) 14.3 L 13.0 L Lymph # (Auto) 1.25 L 1.37 L [place] # (Auto) 0.98 H ESR 36 H POC Glucose C-Reactive Protein 24.10 H 03/25/21 08:35 RBC Hgb Hct POC Hct 36 L MPV Lymph % (Auto) Lymph # (Auto) [place] # (Auto) ESR POC Glucose 108 H C-Reactive Protein Meds: Medications Hydrocodone Bitart/Acetaminophen (Hydrocodone/Apap 10/325mg Tablet) 1 - 2 tab PO Q4HP PRN; Protocol PRN Reason: Per Pain Protocol Last Admin: 03/27/21 05:48 Dose: 2 tab Documented by: Aspirin (Aspirin 81 Mg Tab.Chew) [address] [facility] Last Admin: 03/26/21 20:47 Dose: 81 mg Documented by: Bisacodyl (Bisacodyl 10 Mg Supp.Rect) 10 mg [place] Q2-3DAYS PRN PRN Reason: Constipation Diphenhydramine HCl (Diphenhydramine 25 Mg Capsule) 25 mg PO HSP PRN PRN Reason: Insomnia Last Admin: 03/27/21 00:13 Dose: 25 mg Documented by: Docusate Sodium (Docusate Sodium 100 Mg Capsule) [address] [facility] Last Admin: 03/26/21 20:48 Dose: Not Given Documented by: Heparin Sodium (Porcine) (Heparin Flush 10 Units/Ml 5 Ml Syringe) [address] [facility] Last Admin: 03/26/21 20:48 Dose: 2 ml Documented by: Hydromorphone HCl (Hydromorphone 1 Mg/Ml Syringe) 0.5 - 2 mg IV Q2HP PRN; Protocol PRN Reason: Per Pain Protocol Last Admin: 03/27/21 00:13 Dose: 1 mg Documented by: Sodium Chloride (Sodium Chloride 0.9%) 1,000 mls @ 100 mls/hr IV .Q10H [facility] Last Admin: 03/27/21 06:31 Dose: Not Given Documented by: Vancomycin HCl 1,500 mg/ (Sodium Chloride) 500 mls @ 333.3 mls/hr IV Q12H [facility] Last Infusion: 03/26/21 22:25 Dose: Infused Documented by: Ceftriaxone Sodium 2 gm/ (Dextrose) 50 mls @ 100 mls/hr IV DAILY [facility]; Protocol Last Infusion: 03/26/21 10:47 Dose: Infused Documented by: Magnesium Hydroxide (Magnesium Hydroxide 30 Ml Oral.Susp) 30 ml PO BIDP PRN PRN Reason: Constipation Melatonin (Melatonin 3 Mg Tablet) 3 mg PO HSP PRN PRN Reason: Sleep Last Admin: 03/27/21 00:13 Dose: 3 mg Documented by: Ondansetron HCl (Ondansetron 4 Mg/2 Ml Vial) 4 mg IV Q4HP PRN; Protocol PRN Reason: Nausea And Vomiting Last Admin: 03/27/21 05:57 Dose: 4 mg Documented by: Polyethylene Glycol (Polyethylene Glycol 3350 17 Gm Packet) 17 gm PO DAILYP PRN PRN Reason: Constipation Rifampin (Rifampin 300 Mg Capsule) 300 mg PO BID@0700,2000 [facility]; Protocol Last Admin: 03/26/21 20:46 Dose: 300 mg Documented by: Senna (Sennosides 1 Tablet) [address] [facility] Last Admin: 03/26/21 20:49 Dose: Not Given Documented by: Sodium Biphosphate/Sodium Phosphate (Fleets Adult Enema) 1 dose [place] Q3-4DAYS PRN PRN Reason: Constipation Sodium Chloride (0.9 % Sodium Chloride 10 Ml Syringe) 10 ml IV UD PRN PRN Reason: FLUSH Sodium Chloride (0.9 % Sodium Chloride 10 Ml Syringe) [address] [facility] Last Admin: 03/26/21 20:49 Dose: 10 ml Documented by: Throat Lozenges (Benzocaine/Menthol 1 Lozenge) 1 lozenge PO PRN PRN PRN Reason: Sore Throat Vancomycin HCl (Vancomycin Per Pharmacy) [address] 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 IV abx course 4-6wks. weekly labs while on IV abx outpt -cont rifampin -pt/ot -IS -Continue home BB/ACEI, cont psych meds, ppi -ppx: per ortho ASA bid Time Spent With Patient Time: Total time spent is greater than 50% in coordination of care (as documented) at patient's floor/unit and/or counseling patient:
[2021-03-27] MEDS: DOCUSATE SODIUM 100 MG CAPSULE PO SCH ×2 (08:08→20:57)
[2021-03-27] MEDS: cefTRIAXone 2 GM in DEXTROSE 5% IN WATER 50 ML IV SCH (08:08)
[2021-03-27] MEDS: 0.9 % SODIUM CHLORIDE 10 ML SYRINGE IV SCH ×2 (08:09→20:51)
[2021-03-27] MEDS ORDERED: PROMETHAZINE 25 MG/ML VIAL IV PRN (08:32)
[2021-03-27] MEDS ORDERED: KETOROLAC 30 MG/ML VIAL IV ONE (08:32)
[2021-03-27] MEDS ORDERED: SUCRALFATE 1 GM TABLET PO SCH (09:00)
[2021-03-27] MEDS: VANCOMYCIN 1,500 MG in 0.9 % SODIUM CHLORIDE 500 ML IV SCH ×2 (09:15→20:50)
[2021-03-27] MEDS: PROCHLORPERAZINE 10 MG/2 ML VIAL IV PRN (09:30)
[2021-03-27] MEDS: buPROPion 150 MG TAB.XL.24H PO SCH (09:49)
[2021-03-27] MEDS: RIFAMPIN 300 MG CAPSULE PO SCH ×2 (09:49→20:50)
[2021-03-27] MEDS: GABAPENTIN 300 MG CAPSULE PO SCH ×3 (09:50→20:56)
[2021-03-27] MEDS: LISINOPRIL 20 MG TABLET PO SCH ×2 (09:50→20:56)
[2021-03-27] MEDS: ESCITALOPRAM 10 MG TABLET PO SCH (09:50)
[2021-03-27] MEDS: PANTOPRAZOLE 40 MG TABLET PO SCH ×2 (09:50→16:18)
[2021-03-27] MEDS: ASPIRIN 81 MG TAB.CHEW PO SCH ×2 (09:50→20:56)
--- NOTE | 2021-03-27 12:00 | Orthopedic Progress Note ---
SUBJECTIVE Subjective Patient information: Note initiated : 03/27/21 at 11:57 am Service Date, if different from initiated Date: [] Patient: Jb Hanson 70 y/o M admitted on 03/25/21 for right knee surgery. Chief Complaint: [] Principal diagnosis: infected total knee arthroplasty Interval history: c/o nausea, otherwise pain controlled Constitutional Vitals: Vital Signs Temp Pulse Resp BP Pulse Ox 98.3 F 69 22 151/79 90 03/27/21 08:00 03/27/21 08:00 03/27/21 08:00 03/27/21 08:46 03/27/21 08:00 Period Temp Pulse Resp BP Sys/Rankin Pulse Ox Last 24 Hr 97.5 F-98.8 F 65-69 - 149-185/79-92 90-96 Intake and Output 03/26/21 03/27/21 03/27/21 21:59 05:59 13:59 Intake Total 940 1550 Balance 940 1550 Weight 270 lb 8 oz Intake & Output: Intake & Output 03/26/21 03/27/21 03/27/21 21:59 05:59 13:59 Intake Total 940 1550 Balance 940 1550 Weight 270 lb 8 oz Intake: IV 500 1550 Sodium Chloride 0.9% 1,000 ml @ 1000 100 mls/hr IV .Q10H [facility] Rx#: [id number] Vancomycin 1,500 mg In Sodium 500 500 Chloride 0.9% 500 ml @ 333.3 mls/hr IV Q12H [facility] Rx#: [id number] Rocephin 2 gm In Dextrose 5% in 50 Water 50 ml @ 100 mls/hr IV DAILY [facility] Rx#:[id number] Oral 440 Other: # Voids 1 1 General appearance: cooperative and no acute distress Additional findings Additional findings: dressing w unchanged dried drainage OBJ DATA Labs CBC & Chem 7: 03/25/21 11:39 Labs: Abnormal Lab Results 03/25/21 03/25/21 03/25/21 11:39 11:39 08:35 RBC 3.04 L 3.75 L Hgb 10.3 L 12.2 L Hct 30.0 L 36.2 L POC Hct MPV 10.6 H 10.7 H Lymph % (Auto) 14.3 L 13.0 L Lymph # (Auto) 1.25 L 1.37 L [place] # (Auto) 0.98 H ESR 36 H POC Glucose C-Reactive Protein 24.10 H 03/25/21 08:35 RBC Hgb Hct POC Hct 36 L MPV Lymph % (Auto) Lymph # (Auto) [place] # (Auto) ESR POC Glucose 108 H C-Reactive Protein Meds: Medications Hydrocodone Bitart/Acetaminophen (Hydrocodone/Apap 10/325mg Tablet) 1 - 2 tab PO Q4HP PRN; Protocol PRN Reason: Per Pain Protocol Last Admin: 03/27/21 05:48 Dose: 2 tab Documented by: Aspirin (Aspirin 81 Mg Tab.Chew) 81 mg PO BID [facility] Last Admin: 03/27/21 09:50 Dose: 81 mg Documented by: Atenolol (Atenolol 25 Mg Tablet) 25 mg PO HS [facility] Bisacodyl (Bisacodyl 10 Mg Supp.Rect) 10 mg [place] Q2-3DAYS PRN PRN Reason: Constipation Bupropion HCl (Bupropion 150 Mg Tab.Xl.24h) 450 mg PO QDAY [facility] Last Admin: 03/27/21 09:49 Dose: 450 mg Documented by: Diphenhydramine HCl (Diphenhydramine 25 Mg Capsule) 25 mg PO HSP PRN PRN Reason: Insomnia Last Admin: 03/27/21 00:13 Dose: 25 mg Documented by: Docusate Sodium (Docusate Sodium 100 Mg Capsule) 100 mg PO BID [facility] Last Admin: 03/27/21 08:08 Dose: Not Given Documented by: Escitalopram Oxalate (Escitalopram 10 Mg Tablet) 20 mg PO QDAY [facility] Last Admin: 03/27/21 09:50 Dose: 20 mg Documented by: Gabapentin (Gabapentin 300 Mg Capsule) 600 mg PO TID [facility] Last Admin: 03/27/21 09:50 Dose: 600 mg Documented by: Heparin Sodium (Porcine) (Heparin Flush 10 Units/Ml 5 Ml Syringe) 2 ml IV Q12 [facility] Last Admin: 03/27/21 08:09 Dose: 2 ml Documented by: Hydromorphone HCl (Hydromorphone 1 Mg/Ml Syringe) 0.5 - 2 mg IV Q2HP PRN; Protocol PRN Reason: Per Pain Protocol Last Admin: 03/27/21 08:15 Dose: 1 mg Documented by: Sodium Chloride (Sodium Chloride 0.9%) 1,000 mls @ 100 mls/hr IV .Q10H [facility] Last Infusion: 03/27/21 08:11 Dose: Infused Documented by: Vancomycin HCl 1,500 mg/ (Sodium Chloride) 500 mls @ 333.3 mls/hr IV Q12H [facility] Last Infusion: 03/27/21 11:46 Dose: Infused Documented by: Ceftriaxone Sodium 2 gm/ (Dextrose) 50 mls @ 100 mls/hr IV DAILY [facility]; Protocol Last Infusion: 03/27/21 09:46 Dose: Infused Documented by: Lisinopril (Lisinopril 20 Mg Tablet) 20 mg PO BID [facility] Last Admin: 03/27/21 09:50 Dose: 20 mg Documented by: Magnesium Hydroxide (Magnesium Hydroxide 30 Ml Oral.Susp) 30 ml PO BIDP PRN PRN Reason: Constipation Melatonin (Melatonin 3 Mg Tablet) 3 mg PO HSP PRN PRN Reason: Sleep Last Admin: 03/27/21 00:13 Dose: 3 mg Documented by: Ondansetron HCl (Ondansetron 4 Mg/2 Ml Vial) 4 mg IV Q4HP PRN; Protocol PRN Reason: Nausea And Vomiting Last Admin: 03/27/21 05:57 Dose: 4 mg Documented by: Pantoprazole Sodium (Pantoprazole 40 Mg Tablet) 40 mg PO BIDAC [facility] Last Admin: 03/27/21 09:50 Dose: 40 mg Documented by: Polyethylene Glycol (Polyethylene Glycol 3350 17 Gm Packet) 17 gm PO DAILYP PRN PRN Reason: Constipation Prochlorperazine (Prochlorperazine 10 Mg/2 Ml Vial) 5 mg IV Q4-6HP PRN PRN Reason: Nausea And Vomiting Last Admin: 03/27/21 09:30 Dose: 5 mg Documented by: Promethazine HCl (Promethazine 25 Mg/Ml Vial) 12.5 mg IV Q4HP PRN PRN Reason: Nausea And Vomiting Rifampin (Rifampin 300 Mg Capsule) 300 mg PO BID@0700,2000 [facility]; Protocol Last Admin: 03/27/21 09:49 Dose: 300 mg Documented by: Senna (Sennosides 1 Tablet) 2 tab PO HS [facility] Last Admin: 03/26/21 20:49 Dose: Not Given Documented by: Sodium Biphosphate/Sodium Phosphate (Fleets Adult Enema) 1 dose [place] Q3-4DAYS PRN PRN Reason: Constipation Sodium Chloride (0.9 % Sodium Chloride 10 Ml Syringe) 10 ml IV UD PRN PRN Reason: FLUSH Sodium Chloride (0.9 % Sodium Chloride 10 Ml Syringe) 10 ml IV Q12 [facility] Last Admin: 03/27/21 08:09 Dose: Not Given Documented by: Sucralfate (Sucralfate 1 Gm Tablet) 1 gm PO DAILY@0700,1630 [facility] Throat Lozenges (Benzocaine/Menthol 1 Lozenge) 1 lozenge PO PRN PRN PRN Reason: Sore Throat Vancomycin HCl (Vancomycin Per Pharmacy) 1 order IV UD [facility]; Protocol A/P Narrative A/P Narrative: POD#2 s/p I&D and poly change of infected total knee arthroplasty-stable, cx's growing staph aureus -awaiting sensitivities -PICC line has been placed -anticipated discharge tomorrow after sensitivities come back -cont iv abx Time Spent With Patient Time: Total time spent is greater than 50% in coordination of care (as documented) at patient's floor/unit and/or counseling patient:
[2021-03-27] MEDS: SUCRALFATE 1 GM TABLET PO SCH (16:18)
[2021-03-27] MEDS: ATENOLOL 25 MG TABLET PO SCH (20:56)
[2021-03-27] MEDS: SENNOSIDES 1 TABLET PO SCH (20:58)
[2021-03-28] MEDS: HYDROcodone/APAP 10/325MG TABLET PO PRN ×4 (03:17→19:00)
[2021-03-28] MEDS: ONDANSETRON 4 MG/2 ML VIAL IV PRN (03:18)
[2021-03-28] MEDS: SUCRALFATE 1 GM TABLET PO SCH ×2 (06:57→16:42)
[2021-03-28] MEDS: RIFAMPIN 300 MG CAPSULE PO SCH ×2 (06:57→20:13)
[2021-03-28] MEDS: PANTOPRAZOLE 40 MG TABLET PO SCH ×2 (06:57→16:42)
[2021-03-28] MEDS: PROCHLORPERAZINE 10 MG/2 ML VIAL IV PRN (07:13)
--- NOTE | 2021-03-28 07:28 | Internal Med Progress Note ---
SUBJECTIVE Subjective Patient information: Note initiated : 03/28/21 at 7:27 am Service Date, if different from initiated Date: [] Patient: Jb Hanson 70 y/o M admitted on 03/25/21 for right knee surgery. Chief Complaint: [] Principal diagnosis: infected total knee arthroplasty Interval history: Patient underwent total knee arthroplasty about 3 weeks ago on the right knee. He has since developed prosthetic joint infection. He underwent I&D with polyethylene liner exchange, for stage. Patient denies fever chills. Has a history of hypertension COPD not on home oxygen rarely uses rescue inhalers and history of depression anxiety GERD. 03/26 Patient states poor sleep but that is normal for him. States he tried every sleep aid but nothing really helps. No other overnight event or new complaints. 03/27 Complaints of migraine. Poor sleep but otherwise no new complaints. Wound culture with staph aureus pending final identity. 03/28 No changes or new complaints. Awaiting final identity cultures. Review of Systems: denies headache/fever/chills/nausea/vomiting/chest or abdominal pain/cough/dyspnea/diarrhea. Otherwise see above. Constitutional Vitals: Vital Signs Temp Pulse Resp BP Pulse Ox 98.7 F 71 16 164/84 94 03/28/21 03:12 03/28/21 03:12 03/28/21 03:12 03/28/21 03:12 03/28/21 03:12 Period Temp Pulse Resp BP Sys/Rankin Pulse Ox Last 24 Hr 97 F-98.7 F 68-77 16-22 149-181/77-94 90-94 Intake and Output 03/27/21 03/28/21 03/28/21 21:59 05:59 13:59 Intake Total 840 600 Balance 840 600 Weight 123.105 kg Intake & Output: Intake & Output 03/27/21 03/28/21 03/28/21 21:59 05:59 13:59 Intake Total 840 600 Balance 840 600 Weight 123.105 kg Intake: IV 500 Vancomycin 1,500 mg In Sodium 500 Chloride 0.9% 500 ml @ 333.3 mls/hr IV Q12H LUC Rx#: [id number] Oral 840 100 Other: # Voids 1 1 Exam: General: Alert, Awake, No acute Distress, obese Eyes/N/T: EOMI, Head/Neck: neck supple, CV: RRR, No murmurs, Pulm: Clear b/l, no wheezing/rhonchi/rales Abd: soft, nontender, +BS x4 Ext: no clubbing/cyanosis/edema. Right knee and dressings Neuro: Alert, no focal deficits, moves all extremities Skin: warm/dry OBJ DATA Labs CBC & Chem 7: 03/25/21 11:39 Labs: Abnormal Lab Results 03/25/21 03/25/21 03/25/21 11:39 11:39 08:35 RBC 3.04 L 3.75 L Hgb 10.3 L 12.2 L Hct 30.0 L 36.2 L POC Hct MPV 10.6 H 10.7 H Lymph % (Auto) 14.3 L 13.0 L Lymph # (Auto) 1.25 L 1.37 L Cottle # (Auto) 0.98 H ESR 36 H POC Glucose C-Reactive Protein 24.10 H 03/25/21 08:35 RBC Hgb Hct POC Hct 36 L MPV Lymph % (Auto) Lymph # (Auto) Cottle # (Auto) ESR POC Glucose 108 H C-Reactive Protein Meds: Medications Hydrocodone Bitart/Acetaminophen (Hydrocodone/Apap 10/325mg Tablet) 1 - 2 tab PO Q4HP PRN; Protocol PRN Reason: Per Pain Protocol Last Admin: 03/28/21 07:13 Dose: 2 tab Documented by: Aspirin (Aspirin 81 Mg Tab.Chew) 81 mg PO BID [facility] Last Admin: 03/27/21 20:56 Dose: 81 mg Documented by: Atenolol (Atenolol 25 Mg Tablet) 25 mg PO HS [facility] Last Admin: 03/27/21 20:56 Dose: 25 mg Documented by: Bisacodyl (Bisacodyl 10 Mg Supp.Rect) 10 mg WI Q2-3DAYS PRN PRN Reason: Constipation Bupropion HCl (Bupropion 150 Mg Tab.Xl.24h) 450 mg PO QDAY [facility] Last Admin: 03/27/21 09:49 Dose: 450 mg Documented by: Diphenhydramine HCl (Diphenhydramine 25 Mg Capsule) 25 mg PO HSP PRN PRN Reason: Insomnia Last Admin: 03/27/21 00:13 Dose: 25 mg Documented by: Docusate Sodium (Docusate Sodium 100 Mg Capsule) 100 mg PO BID [facility] Last Admin: 03/27/21 20:57 Dose: Not Given Documented by: Escitalopram Oxalate (Escitalopram 10 Mg Tablet) 20 mg PO QDAY [facility] Last Admin: 03/27/21 09:50 Dose: 20 mg Documented by: Gabapentin (Gabapentin 300 Mg Capsule) 600 mg PO TID [facility] Last Admin: 03/27/21 20:56 Dose: 600 mg Documented by: Heparin Sodium (Porcine) (Heparin Flush 10 Units/Ml 5 Ml Syringe) 2 ml IV Q12 [facility] Last Admin: 03/27/21 20:51 Dose: 2 ml Documented by: Hydromorphone HCl (Hydromorphone 1 Mg/Ml Syringe) 0.5 - 2 mg IV Q2HP PRN; Protocol PRN Reason: Per Pain Protocol Last Admin: 03/27/21 08:15 Dose: 1 mg Documented by: Vancomycin HCl 1,500 mg/ (Sodium Chloride) 500 mls @ 333.3 mls/hr IV Q12H [facility] Last Infusion: 03/27/21 23:10 Dose: Infused Documented by: Ceftriaxone Sodium 2 gm/ (Dextrose) 50 mls @ 100 mls/hr IV DAILY [facility]; Protocol Last Infusion: 03/27/21 09:46 Dose: Infused Documented by: Lisinopril (Lisinopril 20 Mg Tablet) 20 mg PO BID [facility] Last Admin: 03/27/21 20:56 Dose: 20 mg Documented by: Magnesium Hydroxide (Magnesium Hydroxide 30 Ml Oral.Susp) 30 ml PO BIDP PRN PRN Reason: Constipation Melatonin (Melatonin 3 Mg Tablet) 3 mg PO HSP PRN PRN Reason: Sleep Last Admin: 03/27/21 00:13 Dose: 3 mg Documented by: Ondansetron HCl (Ondansetron 4 Mg/2 Ml Vial) 4 mg IV Q4HP PRN; Protocol PRN Reason: Nausea And Vomiting Last Admin: 03/28/21 03:18 Dose: 4 mg Documented by: Pantoprazole Sodium (Pantoprazole 40 Mg Tablet) 40 mg PO BIDAC [facility] Last Admin: 03/28/21 06:57 Dose: 40 mg Documented by: Polyethylene Glycol (Polyethylene Glycol 3350 17 Gm Packet) 17 gm PO DAILYP PRN PRN Reason: Constipation Prochlorperazine (Prochlorperazine 10 Mg/2 Ml Vial) 5 mg IV Q4-6HP PRN PRN Reason: Nausea And Vomiting Last Admin: 03/28/21 07:13 Dose: 5 mg Documented by: Promethazine HCl (Promethazine 25 Mg/Ml Vial) 12.5 mg IV Q4HP PRN PRN Reason: Nausea And Vomiting Last Admin: 03/27/21 15:41 Dose: 12.5 mg Documented by: Rifampin (Rifampin 300 Mg Capsule) 300 mg PO BID@0700,2000 [facility]; Protocol Last Admin: 03/28/21 06:57 Dose: 300 mg Documented by: Senna (Sennosides 1 Tablet) 2 tab PO HS [facility] Last Admin: 03/27/21 20:58 Dose: Not Given Documented by: Sodium Biphosphate/Sodium Phosphate (Fleets Adult Enema) 1 dose WI Q3-4DAYS PRN PRN Reason: Constipation Sodium Chloride (0.9 % Sodium Chloride 10 Ml Syringe) 10 ml IV UD PRN PRN Reason: FLUSH Last Admin: 03/28/21 07:14 Dose: 10 ml Documented by: Sodium Chloride (0.9 % Sodium Chloride 10 Ml Syringe) 10 ml IV Q12 [facility] Last Admin: 03/27/21 20:51 Dose: 10 ml Documented by: Sucralfate (Sucralfate 1 Gm Tablet) 1 gm PO DAILY@0700,1630 [facility] Last Admin: 03/28/21 06:57 Dose: 1 gm Documented by: Throat Lozenges (Benzocaine/Menthol 1 Lozenge) 1 lozenge PO PRN PRN PRN Reason: Sore Throat Vancomycin HCl (Vancomycin Per Pharmacy) 1 order IV UD [facility]; Protocol A/P Narrative A/P Narrative: A: *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 IV abx course 4-6wks, Rocephin (if MSSA) 2gm IV daily & PO rifampin. weekly labs while on IV abx outpt -cont rifampin -pt/ot -IS -Continue home BB/ACEI, cont psych meds, ppi -ppx: per ortho ASA bid Time Spent With Patient Time: Total time spent is greater than 50% in coordination of care (as documented) at patient's floor/unit and/or counseling patient:
[2021-03-28] MEDS: ESCITALOPRAM 10 MG TABLET PO SCH (08:32)
[2021-03-28] MEDS: DOCUSATE SODIUM 100 MG CAPSULE PO SCH ×2 (08:32→21:53)
[2021-03-28] MEDS: cefTRIAXone 2 GM in DEXTROSE 5% IN WATER 50 ML IV SCH (08:32)
[2021-03-28] MEDS: LISINOPRIL 20 MG TABLET PO SCH ×2 (08:32→21:42)
[2021-03-28] MEDS: GABAPENTIN 300 MG CAPSULE PO SCH ×3 (08:32→21:42)
[2021-03-28] MEDS: buPROPion 150 MG TAB.XL.24H PO SCH (08:32)
[2021-03-28] MEDS: ASPIRIN 81 MG TAB.CHEW PO SCH ×2 (08:32→21:43)
[2021-03-28] MEDS: 0.9 % SODIUM CHLORIDE 10 ML SYRINGE IV SCH ×2 (08:35→21:44)
[2021-03-28] MEDS: VANCOMYCIN 1,500 MG in 0.9 % SODIUM CHLORIDE 500 ML IV SCH (09:48)
[2021-03-28] MEDS: BUTALB/ACETAMINOPHEN/CAFFEINE 1 TABLET PO PRN ×2 (11:08→20:15)
--- NOTE | 2021-03-28 11:24 | Discharge Summary ---
Discharge Provider Provider Patient information: Note initiated : 03/28/21 at 11:21 am Service Date, if different from initiated Date: [] Patient: Jb Hanson 70 y/o M admitted on 03/25/21 for right knee surgery. Chief Complaint: [] Date of admission: 03/25/21 12:40 Discharge date: 03/28/21 Primary care physician: Magy Segundo Admitting clinician: Emmett Rosado Attending physician on admission: Emmett Rosado Consults: 03/25/21 Consult to Physician [CONS] Urgent Comment: infected TKA, please give abx recs Consulting Provider: [facility] Reason For Exam: Physician to Consult 03/25/21 11:51 Consult to Physician [CONS] Routine Comment: Consulting Provider: Tommy Grey Reason For Exam: Physician to Consult 03/26/21 07:12 Consult to Physician [CONS] Routine Comment: Consulting Provider: Emmett Rosado Reason For Exam: Physician to Consult Attending physician on discharge: Emmett Rosado Discharging clinician: Emmett Rosado COURSE Hospital Course Hospital course: admitted for I&D and poly change. Placed on Vanco until pod#3 cx's showed MSSA. D/c'd home. Discharge diagnosis: infected total knee arthroplasty, acute Reason for admission: draining wound 3 wks s/p tka Procedures: I&D and poly change Time Spent with Patient Time attestation: Total time spent providing and/or coordinating discharge services: Physical Examination Exam Incision draining: No Clean and dry: Yes Weight bearing status: full Discharge Instructions - TKA Patient Instructions Total Knee Protocol: For Total Knee: Start ROM GUSTAVO with stationary bike or rocking chair. Work on gaining full extension of knee. Posterior dislocation precautions provided. Hip abductor strengthening and gait training instructions provided. Apply Cryocuff as instructed. Dressing Care: May shower in 3 days and Other (place silver dressing, leave on for 7 days, then silvasorb daily) Discharge Plan Patient/Caregiver Discharge Instructions Activity: increase activity as tolerated Diet: Regular Diet Prescriptions: New hydrocodone-acetaminophen 10-325 mg Tablet 1 - 2 tab PO Q4H PRN (Reason: Pain) Qty: 60 0RF aspirin 81 mg Tablet,Delayed Release (Dr/Ec) 81 mg PO BID Qty: 30 0RF No Action atenolol 50 mg tablet 25 mg PO HS 0RF benazepril 20 mg tablet 20 mg PO BID 0RF bupropion HCl 150 mg tablet extended release 24 hr 450 mg PO QDAY 0RF cetirizine 10 mg tablet 10 mg PO BID 0RF escitalopram oxalate 10 mg tablet 20 mg PO QDAY 0RF pantoprazole 40 mg tablet,delayed release (DR/EC) 40 mg PO BID 0RF sucralfate 1 gram tablet 1 g PO BID 0RF multivitamin Tablet 1 tab PO QAM 0RF ibuprofen 800 mg Tablet 800 mg PO Q8H PRN (Reason: Pain) 0RF coenzyme Q10 [Co Q-10] 200 mg Capsule 200 mg PO QDAY 0RF cholecalciferol (vitamin D3) [Vitamin D3] 50 mcg (2,000 unit) Tablet 150 mcg PO QDAY 0RF Cholest Off Plus 450 mg Capsule 450 mg PO BID 0RF albuterol sulfate 90 mcg/actuation Hfa Aerosol Inhaler 2 puff INHALATION Q4H PRN (Reason: Shortness Of Breath) 0RF Rx Instructions: 2 puffs inhalation every 4 hours PRN; acetaminophen [Tylenol] 325 mg Tablet 650 mg PO ONCE PRN (Reason: Pain) 0RF ferrous sulfate 325 mg (65 mg iron) Tablet 325 mg PO QDAY 0RF docusate sodium 100 mg Capsule 100 mg PO BID Qty: 60 0RF aspirin 81 mg Tablet,Chewable 81 mg PO BID Qty: 60 0RF hydrocodone-acetaminophen 10-325 mg Tablet 1 - 2 tab PO Q4HP PRN (Reason: Per Pain Protocol) Qty: 75 0RF gabapentin 600 mg tablet 600 mg PO TID 0RF Other Ambulatory Orders: Physical Therapy DC - TKA (Routine) Location: None Selected Ordered By: Emmett Rosado Toilet Riser Discharge Order (ONCE) Location: None Selected Ordered By: Emmett Rosado Follow Up Plan Follow up with: Magy Segundo MD [Primary Care Provider] - Patient Disposition: Home, Self-Care Prognosis: Fair Discharge Orders: Discharge Order (Routine); Ordered 03/28/21 Ordered By: Emmett Rosado Pending Pending Pending: Resuscitation Status Resuscitate (Full Code) Diet Consistent Carbohydrate Diet Start FriMar 26 152 Acetaminophen/Butalbital/Caffeine (Butalb/Acetaminophen/Caffeine 1 Tablet) 1 ta b PO Q6HP PRN PRN Reason: Headache Last Admin: 03/28/21 11:08 Dose: 1 tab Documented by: NAVDEEP Hydrocodone Bitart/Acetaminophen (Hydrocodone/Apap 10/325mg Tablet) 1 - 2 tab PO Q4HP PRN; Protocol PRN Reason: Per Pain Protocol Last Admin: 03/28/21 07:13 Dose: 2 tab Documented by: Admin: 03/28/21 03:17 Dose: 2 tab Documented by: Admin: 03/27/21 21:00 Dose: 2 tab Documented by: Admin: 03/27/21 05:48 Dose: 2 tab Documented by: Admin: 03/26/21 19:30 Dose: 2 tab Documented by: Admin: 03/26/21 15:45 Dose: 2 tab Documented by: Admin: 03/26/21 08:52 Dose: 1 tab Documented by: Admin: 03/25/21 21:02 Dose: 1 tab Documented by: DAVID Aspirin (Aspirin 81 Mg Tab.Chew) 81 mg PO BID [facility] Last Admin: 03/28/21 08:32 Dose: 81 mg Documented by: Admin: 03/27/21 20:56 Dose: 81 mg Documented by: Admin: 03/27/21 09:50 Dose: 81 mg Documented by: Admin: 03/26/21 20:47 Dose: 81 mg Documented by: Admin: 03/26/21 08:52 Dose: 81 mg Documented by: Admin: 03/25/21 21:02 Dose: 81 mg Documented by: DAVID Atenolol (Atenolol 25 Mg Tablet) 25 mg PO [facility] Last Admin: 03/27/21 20:56 Dose: 25 mg Documented by: ABDOULAYE Bupropion HCl (Bupropion 150 Mg Tab.Xl.24h) 450 mg PO QDAY [facility] Last Admin: 03/28/21 08:32 Dose: 450 mg Documented by: Admin: 03/27/21 09:49 Dose: 450 mg Documented by: ZACH Diphenhydramine HCl (Diphenhydramine 25 Mg Capsule) 25 mg PO HSP PRN PRN Reason: Insomnia Last Admin: 03/27/21 00:13 Dose: 25 mg Documented by: Admin: 03/25/21 22:24 Dose: 25 mg Documented by: DAVID Docusate Sodium (Docusate Sodium 100 Mg Capsule) 100 mg PO BID [facility] Last Admin: 03/28/21 08:32 Dose: 100 mg Documented by: Admin: 03/27/21 20:57 Dose: Not Given Documented by: Admin: 03/27/21 08:08 Dose: Not Given Documented by: Admin: 03/26/21 20:48 Dose: Not Given Documented by: Admin: 03/26/21 08:53 Dose: Not Given Documented by: Admin: 03/25/21 21:02 Dose: 100 mg Documented by: DAVID Escitalopram Oxalate (Escitalopram 10 Mg Tablet) 20 mg PO QDAY [facility] Last Admin: 03/28/21 08:32 Dose: 20 mg Documented by: Admin: 03/27/21 09:50 Dose: 20 mg Documented by: ZACH Gabapentin (Gabapentin 300 Mg Capsule) 600 mg PO TID [facility] Last Admin: 03/28/21 08:32 Dose: 600 mg Documented by: Admin: 03/27/21 20:56 Dose: 600 mg Documented by: Admin: 03/27/21 15:41 Dose: 600 mg Documented by: Admin: 03/27/21 09:50 Dose: 600 mg Documented by: ZACH Heparin Sodium (Porcine) (Heparin Flush 10 Units/Ml 5 Ml Syringe) 2 ml IV Q12 [facility] Last Admin: 03/28/21 08:35 Dose: 2 ml Documented by: Admin: 03/27/21 20:51 Dose: 2 ml Documented by: Admin: 03/27/21 08:09 Dose: 2 ml Documented by: Admin: 03/26/21 20:48 Dose: 2 ml Documented by: ABDOULAYE Hydromorphone HCl (Hydromorphone 1 Mg/Ml Syringe) 0.5 - 2 mg IV Q2HP PRN; Protocol PRN Reason: Per Pain Protocol Last Admin: 03/27/21 08:15 Dose: 1 mg Documented by: Admin: 03/27/21 00:13 Dose: 1 mg Documented by: Admin: 03/25/21 16:01 Dose: 1 mg Documented by: NICOLE Lisinopril (Lisinopril 20 Mg Tablet) 20 mg PO BID [facility] Last Admin: 03/28/21 08:32 Dose: 20 mg Documented by: Admin: 03/27/21 20:56 Dose: 20 mg Documented by: Admin: 03/27/21 09:50 Dose: 20 mg Documented by: ZACH Melatonin (Melatonin 3 Mg Tablet) 3 mg PO HSP PRN PRN Reason: Sleep Last Admin: 03/27/21 00:13 Dose: 3 mg Documented by: Admin: 03/25/21 22:25 Dose: 3 mg Documented by: DAVID Ondansetron HCl (Ondansetron 4 Mg/2 Ml Vial) 4 mg IV Q4HP PRN; Protocol PRN Reason: Nausea And Vomiting Last Admin: 03/28/21 03:18 Dose: 4 mg Documented by: Admin: 03/27/21 05:57 Dose: 4 mg Documented by: Admin: 03/26/21 19:35 Dose: 4 mg Documented by: Admin: 03/26/21 15:41 Dose: 4 mg Documented by: Admin: 03/26/21 08:36 Dose: 4 mg Documented by: ZACH Pantoprazole Sodium (Pantop[facility]ole 40 Mg Tablet) [facility] Last Admin: 03/28/21 06:57 Dose: 40 mg Documented by: Admin: 03/27/21 16:18 Dose: 40 mg Documented by: Admin: 03/27/21 09:50 Dose: 40 mg Documented by: ZACH Prochlorperazine (Prochlorperazine 10 Mg/2 Ml Vial) 5 mg IV Q4-6HP PRN PRN Reason: Nausea And Vomiting Last Admin: 03/28/21 07:13 Dose: 5 mg Documented by: Admin: 03/27/21 09:30 Dose: 5 mg Documented by: ZACH Promethazine HCl (Promethazine 25 Mg/Ml Vial) 12.5 mg IV Q4HP PRN PRN Reason: Nausea And Vomiting Last Admin: 03/27/21 15:41 Dose: 12.5 mg Documented by: ZACH Rifampin (Rifampin 300 Mg Capsule) 300 mg PO BID@0700,2000 [facility]; Protocol Last Admin: 03/28/21 06:57 Dose: 300 mg Documented by: Admin: 03/27/21 20:50 Dose: 300 mg Documented by: Admin: 03/27/21 09:49 Dose: 300 mg Documented by: Admin: 03/26/21 20:46 Dose: 300 mg Documented by: Admin: 03/26/21 08:59 Dose: 300 mg Documented by: Admin: 03/25/21 21:03 Dose: 300 mg Documented by: DAVID Senna (Sennosides 1 Tablet) 2 tab PO HS [facility] Last Admin: 03/27/21 20:58 Dose: Not Given Documented by: Admin: 03/26/21 20:49 Dose: Not Given Documented by: Admin: 03/25/21 21:02 Dose: 2 tab Documented by: DAVID Sodium Chloride (0.9 % Sodium Chloride 10 Ml Syringe) 10 ml IV UD PRN PRN Reason: FLUSH Last Admin: 03/28/21 07:14 Dose: 10 ml Documented by: NAVDEEP Sodium Chloride (0.9 % Sodium Chloride 10 Ml Syringe) 10 ml IV Q12 [facility] Last Admin: 03/28/21 08:35 Dose: 10 ml Documented by: Admin: 03/27/21 20:51 Dose: 10 ml Documented by: Admin: 03/27/21 08:09 Dose: Not Given Documented by: Admin: 03/26/21 20:49 Dose: 10 ml Documented by: ABDOULAYE Sucralfate (Sucralfate 1 Gm Tablet) 1 gm PO DAILY@0700,1630 [facility] Last Admin: 03/28/21 06:57 Dose: 1 gm Documented by: Admin: 03/27/21 16:18 Dose: 1 gm Documented by: ZACH Shift Summary 03/28/21 04:16 Shift Summary by Yuly Mejia Admitted for I&D of ight knee post knee surgery. Up ad ralph in room w/FWW. Voiding QS. PICC to left upper arm flushes well w/good blood return. Left arm swollen, but less so than yesterday - they had a hard time threading it and it bled quite a bit after insertion. Pt reminded to keep elevated to help decrease edema. Pt has had more headache pain last couple days than knee pain. Taking norco to help. Dressing to right knee CDI. Will d/c home & have OP ABO for 6 weeks once wound cultures are back. Initialized on 03/28/21 04:16 - END OF NOTE
[2021-03-28] MEDS ORDERED: ceFAZolin 2 GM in DEXTROSE 5% IN WATER 50 ML IV SCH (11:30)
[2021-03-28] MEDS: ceFAZolin 1 GM VIAL IV SCH ×2 (13:02→21:43)
[2021-03-28] MEDS: ATENOLOL 25 MG TABLET PO SCH (21:43)
[2021-03-28] MEDS: SENNOSIDES 1 TABLET PO SCH (21:53)
[2021-03-28] MEDS: MELATONIN 3 MG TABLET PO PRN (21:57)
[2021-03-28] MEDS: diphenhydrAMINE 25 MG CAPSULE PO PRN (21:57)
[2021-03-29] MEDS: ceFAZolin 1 GM VIAL IV SCH ×2 (06:11→16:04)
[2021-03-29] MEDS: HYDROcodone/APAP 10/325MG TABLET PO PRN (06:31)
[2021-03-29] MEDS: ONDANSETRON 4 MG/2 ML VIAL IV PRN (06:31)
[2021-03-29] MEDS: RIFAMPIN 300 MG CAPSULE PO SCH (06:35)
[2021-03-29] MEDS: PANTOPRAZOLE 40 MG TABLET PO SCH (06:35)
[2021-03-29] MEDS: SUCRALFATE 1 GM TABLET PO SCH (06:35)
[2021-03-29] MEDS: buPROPion 150 MG TAB.XL.24H PO SCH (08:26)
[2021-03-29] MEDS: ESCITALOPRAM 10 MG TABLET PO SCH (08:26)
[2021-03-29] MEDS: GABAPENTIN 300 MG CAPSULE PO SCH ×2 (08:26→15:11)
[2021-03-29] MEDS: ASPIRIN 81 MG TAB.CHEW PO SCH (08:26)
[2021-03-29] MEDS: DOCUSATE SODIUM 100 MG CAPSULE PO SCH (08:26)
[2021-03-29] MEDS: LISINOPRIL 20 MG TABLET PO SCH (08:26)
[2021-03-29] MEDS: 0.9 % SODIUM CHLORIDE 10 ML SYRINGE IV SCH (08:27)
[2021-03-29] MEDS: BUTALB/ACETAMINOPHEN/CAFFEINE 1 TABLET PO PRN (15:11)
== END 2021-03-29 15:45 | disposition home or self-care (01) | DRG 468 ==
LOC: ED 08:17 → SUR 09:21 → MEDSUR 12:40
PROVIDERS: ADMIT Orthopaedic Surgery; ATTEND Orthopaedic Surgery